=== PATIENT | male | born 1995 | race American Indian/Alaskan Native ===

== ENCOUNTER 2017-09-17 18:20 | Emergency (ER) | payer SELFPAY ==
--- NOTE | 2017-09-17 19:56 | EDM.PDOC ---
ED HPI GENERAL MEDICAL PROBLEM - General Chief Complaint: Eye Problems Stated Complaint: SOMETHING IN LF EYE Time Seen by Provider: 09/17/17 19:56 Source of Information: Reports: Patient History Limitations: Reports: No Limitations - History of Present Illness INITIAL COMMENTS - FREE TEXT/NARRATIVE: HISTORY AND PHYSICAL: History of present illness: 22-year-old male presenting numerous department with chief complaint of left eye irritation. Patient states that about 2 days ago he began to have some irritation to his left eye. He denies any foreign body however he has noticed a "spot" on the eye today so came to the emergency department for further evaluation. Review of systems: As per history of present illness and below otherwise all systems reviewed and negative. Past medical history: As per history of present illness and as reviewed below otherwise noncontributory. Surgical history: As per history of present illness and as reviewed below otherwise noncontributory. Social history: No reported history of drug or alcohol abuse. Family history: As per history of present illness and as reviewed below otherwise noncontributory. Physical exam: HEENT: Atraumatic, normocephalic, pupils reactive, negative for conjunctival pallor or scleral icterus, mucous membranes moist, throat clear, neck supple, nontender, trachea midline. Lungs: Clear to auscultation, breath sounds equal bilaterally, chest nontender. Heart: S1S2, regular, negative for clicks, rubs, or JVD. Abdomen: Soft, nondistended, nontender. Negative for masses or hepatosplenomegaly. Negative for costovertebral tenderness. Pelvis: Stable nontender. Genitourinary: Deferred. Rectal: Deferred. Extremities: Atraumatic, negative for cords or calf pain. Neurovascular unremarkable. Neuro: Awake, alert, oriented. Cranial nerves II through XII unremarkable. Cerebellum unremarkable. Motor and sensory unremarkable throughout. Exam nonfocal. Diagnostics: [] Therapeutics: [] Impression: []Foreign body left eye Plan: []Called and talked to Dr. Siegel security shift supervisor who is going to meet the patient immediately after discharge from here for further evaluation after I discussed the case with him. Definitive disposition and diagnosis as appropriate pending reevaluation and review of above. - Related Data Allergies Allergy/AdvReac Type Severity Reaction Status Date / Time No Known Allergies Allergy Verified 09/17/17 19:14 Home Meds: Home Meds . [No Known Home Meds] 09/17/17 [History] Past Medical History - Past Health History Medical/Surgical History: Denies Medical/Surgical History Social & Family History - Tobacco Use Smoking Status *Q: Former Smoker Used Tobacco, but Quit: Yes Month/Year Tobacco Last Used: 2016 - Recreational Drug Use Recreational Drug Use: No ED ROS GENERAL - Review of Systems Review Of Systems: ROS reveals no pertinent complaints other than HPI. ED EXAM GENERAL W FULL EYE - Physical Exam Exam: See Below Course - Vital Signs Last Recorded V/S: Last Vital Signs Temp 98.2 F 09/17/17 19:12 Pulse 97 09/17/17 19:12 Resp 12 09/17/17 19:12 BP 126/61 09/17/17 19:53 Pulse Ox 97 09/17/17 19:12 Departure - Departure Time of Disposition: 20:09 Disposition: Home, Self-Care 01 Condition: Good Clinical Impression: Foreign body, eye Qualifiers: Encounter type: initial encounter Laterality: left Qualified Code(s): T15.92XA - Foreign body on external eye, part unspecified, left eye, initial encounter - Discharge Information Referrals: PCP,None [Primary Care Provider] - Forms: ED Department Discharge Additional Instructions: My general discharge The following information is given to patients seen in the emergency department who are being discharged to home. This information is to outline your options for follow-up care. We provide all patients seen in our emergency department with a follow-up referral. The need for follow-up, as well as the timing and circumstances, are variable depending upon the specifics of your emergency department visit. If you don't have a primary care physician on staff, we will provide you with a referral. We always advise you to contact your personal physician following an emergency department visit to inform them of the circumstance of the visit and for follow-up with them and/or the need for any referrals to a consulting specialist. The emergency department will also refer you to a specialist when appropriate. This referral assures that you have the opportunity for follow-up care with a specialist. All of these measure are taken in an effort to provide you with optimal care, which includes your follow-up. Under all circumstances we always encourage you to contact your private physician who remains a resource for coordinating your care. When calling for follow-up care, please make the office aware that this follow-up is from your recent emergency room visit. If for any reason you are refused follow-up, please contact the [facility] Emergency Department at and asked to speak to the emergency department charge nurse. Please meet Dr. Siegel security shift supervisor at 8:25 at [address] at [facility] like we discussed.
== END 2017-09-17 20:16 | disposition home or self-care (01) ==
LOC: MW.ED 18:20
DX: T15.92XA Foreign body on external eye, part unspecified, left eye, initial encounter (principal); Z87.891 Personal history of nicotine dependence
CPT/HCPCS: 99282; 99283

== ENCOUNTER 2019-03-30 07:17 | Emergency (ER) | payer OTHER ==
[2019-03-30] MEDS ORDERED: Ibuprofen 400 MG Tab PO ONE (08:05)
[2019-03-30] MEDS ORDERED: Acetaminophen 325 MG Tab PO ONE (08:05)
--- NOTE | 2019-03-30 08:05 | EDM.PDOC ---
ED [facility] GENERAL MEDICAL PROBLEM - General Chief Complaint: Upper Extremity Injury/Pain Stated Complaint: PIECE OF METAL IN LT POINTER FINGER Time Seen by Provider: 03/30/19 07:40 Source of Information: Reports: Patient History Limitations: Reports: No Limitations - History of Present Illness INITIAL COMMENTS - FREE TEXT/NARRATIVE: Patient is a 24-year-old male no significant past medical history presenting with a chief complaint of foreign body sensation to the left index finger. Patient states he was working with metal over the weekend and is afraid he got a piece of metal stuck in his index finger. Patient reports pain and swelling to the distal tip of the index finger. Patient reports that his tetanus is up- to-date. Patient reports having an associated URI syndrome with cough, sore throat, fevers. However, I is not concerned about that it would not like that addressed at this time. Pmhx: None Pshx: None Family Hx: noncontributory Smoking history? no Etoh use? none Drug use? none Review of systems was otherwise negative except as noted in the HPI. I have reviewed the triage vital signs Const: Well nourished, well developed, appears stated age Eyes: PERRL, no conjunctival injection HENT: NCAT, Neck supple without meningismus CV: RRR, Warm, well-perfused extremities RESP: CTAB, Unlabored respiratory effort GI: soft, non-tender, non-distended, no masses MSK: Swelling with slight erythema to the lateral aspect of the nail bed of the distal left index finger. No foreign body or bleeding noted. No other skin color changes Skin: Warm, dry. No rashes Neuro: Alert, beauty consultant II-XII grossly intact. Sensation and motor function of extremities grossly intact. Psych: Appropriate mood and affect Assessment and plan: Patient is a 24-year-old male presenting with foreign body sensation to the left and x-ray. An x-ray was performed to rule out foreign body as this clinically appears to be more of a paronychia as opposed to foreign body. X- ray negative for foreign body in the index finger. Patient had paronychia drainage in the emergency department. Tolerated procedure well without any complications. Patient given return precautions. Patient started on antibiotics. PROCEDURE NOTE: INCISION AND DRAINAGE OF ABSCESS Indication: Abscess Instant Potato Processor: Angie Indications, risks, and benefits explained to patient and verbal informed consent obtained. Correct patient and procedure type was verified. 1) The patient was anesthetized using 2 cc lidocaine 1% w/o epinephrine 2) Abscess Location: Left index finger 3) Abscess Size: 0.5 cm 4) Procedure description: Procedure performed with 11 blade scalpel after anesthetizing and cleaning the area with Betadine. Scant amount of pus was drained with some blood. Patient wrapped in sterile dressing. 5) Culture specimen(s) obtained and sent for testing? No A clean dressing was applied. The patient tolerated the procedure with minimal discomfort. Left Index finger Pain Score (Numeric/FACES): 2 - Related Data Allergies Allergy/AdvReac Type Severity Reaction Status Date / Time No Known Allergies Allergy Verified 03/30/19 07:33 Home Meds: Home Meds cephALEXin [Keflex] 500 mg PO Q8H #15 cap 03/30/19 [Rx] Past Medical History - Past Health History Medical/Surgical History: Denies Medical/Surgical History HEENT History: Reports: None Cardiovascular History: Reports: None Respiratory History: Reports: None Gastrointestinal History: Reports: None Genitourinary History: Reports: None Musculoskeletal History: Reports: None Neurological History: Reports: None Psychiatric History: Reports: None Endocrine/Metabolic History: Reports: None Hematologic History: Reports: None Immunologic History: Reports: None Oncologic (Cancer) History: Reports: None Dermatologic History: Reports: None - Infectious Disease History Infectious Disease History: Reports: None - Past Surgical History Head Surgeries/Procedures: Reports: None HEENT Surgical History: Reports: None Cardiovascular Surgical History: Reports: None Respiratory Surgical History: Reports: None GI Surgical History: Reports: None Male Surgical History: Reports: None Endocrine Surgical History: Reports: None Neurological Surgical History: Reports: None Musculoskeletal Surgical History: Reports: None Oncologic Surgical History: Reports: None Dermatological Surgical History: Reports: None Social & Family History - Family History Family Medical History: Noncontributory - Tobacco Use Smoking Status *Q: Current Every Day Smoker Years of Tobacco use: 3 Packs/Tins Daily: 0.5 - Caffeine Use Caffeine Use: Reports: Coffee - Recreational Drug Use Recreational Drug Use: Yes Recreational Drug Type: Reports: Cocaine Review of Systems - Review of Systems Review Of Systems: See Below ED EXAM, GENERAL - Physical Exam Exam: See Below Course - Vital Signs Last Recorded V/S: Last Vital Signs Temp 36.3 C 03/30/19 07:31 Pulse 113 H 03/30/19 07:31 Resp 18 03/30/19 07:31 BP 145/85 H 03/30/19 07:31 Pulse Ox 97 03/30/19 07:31 - Orders/Labs/Meds Meds: Medications Discontinued Medications Generic Name Dose Route Start Last Admin Trade Name Stevenson PRN Reason Stop Dose Admin Acetaminophen 650 mg 03/30/19 08:05 03/30/19 08:32 Tylenol PO 03/30/19 08:06 650 mg NOW ONE Administration Ibuprofen 400 mg 03/30/19 08:05 03/30/19 08:31 Motrin PO 03/30/19 08:06 400 mg ONETIME ONE Administration Lidocaine HCl 5 ml 03/30/19 08:05 03/30/19 08:33 Xylocaine-Mpf 1% INJECT 03/30/19 08:06 5 ml ONETIME ONE Administration Departure - Departure Time of Disposition: 09:06 Disposition: Home, Self-Care 01 Clinical Impression: Paronychia of finger of left hand - Discharge Information Prescriptions: cephALEXin [Keflex] 500 mg PO Q8H #15 cap Referrals: PCP,None [Primary Care Provider] - Forms: ED Department Discharge Sepsis Event Note - Evaluation Sepsis Screening Result: No Definite Risk - Focused Exam Vital Signs: Vital Signs Temp Pulse Resp BP Pulse Ox 03/30/19 07:31 36.3 C 113 H 18 145/85 H 97 Date Exam was Performed: 03/30/19 Time Exam was Performed: 09:03
--- NOTE | 2019-03-30 08:17 | CR ---
Left hand: 3 views of the left hand were obtained. Comparison: No previous study. 2 adjacent linear opacities are seen at the level of the middle phalanx of the fourth digit compatible with foreign bodies. Joint spaces are preserved. Cyst is believed to be incidental noted within the distal first metacarpal. No acute fracture, dislocation or other bony abnormality is identified. Impression: 1. 2 adjacent linear foreign bodies within the soft tissues at the level of middle phalanx of the fourth digit. 2. Cyst within the distal first metacarpal. 3. No additional abnormality is appreciated on 3 view left hand exam. Diagnostic code #3 Study was dictated in [place] Standard Time
== END 2019-03-30 09:14 | disposition home or self-care (01) ==
LOC: MW.ED 07:17
DX: L03.012 Cellulitis of left finger (principal)
CPT/HCPCS: 10060; 73130; 99283; A9270; J2001